=== PATIENT | female | born 1955 | race Caucasian/White ===

== ENCOUNTER → 2017-08-19 | Outpatient (REF) | payer MEDICARE, MEDICAID ==
[2017-05-14 11:57] VITALS: BMI 19.5
[~2017-08-19] MED LIST: ACE3 PO; ACET-2031 PO; ACET-2043 PO; ALE70 PO; AMIO200T47 PO; ARI10 PO; ARIP5TAB PO; BACOUD TP; BEN5 PO; BENZ1 PO; BENZ200C15 PO; BIS10S PR; CALC-515 PO; CALC600T63 PO; CHOL10005 PO; CHOL500025 PO; CIT20 PO; DEN60I SUBQ; DOC100 PO; DULO60CA56 PO; DULO60CA7 PO; EUCT TOP; FERR-53 PO; FLU1 PO; FOLI-94 PO; GUAI118L70 PO; HYDR28.426 TP; IBU200 PO; IMMODIUM PO; IRON15TA PO; LACT-213 PO; LACT-214 PO; LACT10SO82 PO; LEV112 PO; LEV125 PO; LEVO-3 PO; LEVO750T27 PO; LEVO88TA42 PO; LINA290C PO; LOPE-147 PO; LOPE1LIQ49 PO; LOR1 PO; LOR5/325 PO; LOR7.5/325 PO; LORA-1221 PO; LUBI24CA14 PO; METO-566 PO; MINE120C6 TP; MIR PO; MOM PO; MULT-1335 PO; NAPR220T86 PO; NYST100016 PO; OMEG-11 PO; OMEG500C7 PO; OSC600 PO; PANT40TA65 PO; POLY17PO21 FT; POLY17PO25 PO; POTA-23 PO; RIS1 PO; RISP-34 PO; RISP2TAB70 PO; RISP3TAB78 PO; SALSP; SENN8.8S6 PO; SODI30SP6 NS; SULF-198 PO; TER20I SUBQ; [UNRECOGNIZED DRUG - CODE] MC; [UNRECOGNIZED DRUG - CODE] PO; [UNRECOGNIZED DRUG - CODE] PO; [UNRECOGNIZED DRUG - CODE] PO; [UNRECOGNIZED DRUG - CODE] RC; [UNRECOGNIZED DRUG - CODE] TP
[2017-08-19 16:35] LABS: PLATELET COUNT, AUTOMATED 135 K/uL (150-450)
== END ==
PROVIDERS: ATTEND Family Medicine
DX: R05 Cough (principal); R50.9 Fever, unspecified
CPT/HCPCS: 82040; 82247; 82310; 82374; 82435; 82565; 82947; 84075; 84132; 84155; 84295; 84450; 84460; 84520; 85025

== ENCOUNTER 2017-09-24 09:00 | Emergency (ER) | payer MEDICARE, MEDICAID ==
[2017-05-14 11:57] VITALS: Wt 54.4 kg
[~2017-09-24 09:00] MED LIST changes: -ACET325S
[2017-09-24] MEDS ORDERED: NS(*) 0.9% 1000 ML BAG 1,000 ML IV ONE (09:05)
--- NOTE | 2017-09-24 09:12 | ER Report ---
History and Physical Time Seen By MD: 09:08 HPI/ROS CHIEF COMPLAINT: Unresponsiveness HISTORY OF PRESENT ILLNESS: 67 year-old female comes from the [facility] past medical history includes. Cardia unresponsiveness and turning ashen color with drooling frequency unknown per caregiver has been to product safety manager and neurologist ascertain the cause of this problem and no agreement has been found presents with unresponsiveness for 10 minutes associated with pelvic color and heart rate of 55-60 prompting call to EMS as per their protocol. Per EMS she has been awake and talking has had normal color and no complaints. The prehospital EKG was performed and reviewed by me. She is unable to voice any clear complaints at this time. She is responding to at times to some questions. REVIEW OF SYSTEMS: Constitutional: No fever, no chills. Eyes: No discharge. ENT: No sore throat. Cardiovascular: No chest pain, no palpitations. Respiratory: No cough, no shortness of breath. Gastrointestinal: No abdominal pain, no vomiting. Genitourinary: No hematuria. Musculoskeletal: No back pain. Skin: No rashes. Neurological: No headache. Allergies: Coded Allergies: imipenem (Verified Allergy, Intermediate, RASH, 08/19/15) 08/10/15cah: Pt developed a rash on Imipenem, levofloxacin, and vancomycin. Stopped Imipenem and started cefepime midazolam (Verified Allergy, Intermediate, TACHYCARDIA. LOW BP, 08/19/15) clozapine (Verified Allergy, Mild, UNKNOWN REACTION FROM CHART REVIEW, 08/19) Home Meds Active Scripts Pantoprazole Sodium (PANTOPRAZOLE SODIUM) 40 Mg Tablet.dr, 40 MG PO QDAY, #30 Prov:KAVITHA SCHAEFFER MD 05/28/17 Ferrous Sulfate (FERROUS SULFATE) 325 Mg Tablet, 325 MG PO BIDLS, #60 Prov:KAVITHA SCHAEFFER MD 05/28/17 Reported Medications Polyethylene Glycol 3350 (MIRALAX) 17 Gm Powd.pack, 17 GM PO, PKT 09/24/17 Acetaminophen (MAPAP) 325 Mg/10.15 Ml Solution 09/24/17 Levothyroxine Sodium (LEVOTHYROXINE SODIUM) 100 Mcg Tablet, 112 MCG PO QDAY, TAB 09/24/17 Sodium Chloride (SALINE NASAL SPRAY) 30 Ml [place], 2 SPRAYS NS TID, SPRAY 05/14/17 Risperidone (RISPERDAL) 2 Mg Tablet, 2 MG PO QAM 05/14/17 Acetaminophen (ACETAMINOPHEN) 325 Mg Tablet, 325 MG PO BID, TAB 05/14/17 Cholecalciferol (Vitamin D3) (VITAMIN D3) 1,000 Unit Tablet, 5000 UNIT PO 3XW, TAB 05/14/17 Multivitamin With Minerals (MULTIPLE VITAMIN) 1 Each Tablet, 1 EACH PO DAILY, TAB 05/14/17 Lactose-Free Food (ENSURE PLUS) 237 Ml Liquid, 237 ML PO QDAY 05/08/17 Duloxetine HCl (Duloxetine HCl) 60 Mg Capsule.dr, 1 CAP PO QDAY 05/07/17 Fludrocortisone Acetate (Florinef) 0.1 Mg Tab, 0.1 MG PO QDAY M-F, 0 Refills 08/05/10 Discontinued Reported Medications Levothyroxine Sodium (LEVOTHYROXINE SODIUM) 0.125 Mg Tab, 0.125 MG PO QDAY, TAB 05/07/17 Discontinued Scripts Potassium Phosphate Monobasic (K-PHOS ORIGINAL) 500 Mg Tab, 500 MG PO BID, #60 TAB Prov:KAVITHA SCHAEFFER MD 05/28/17 Potassium Chloride (KLOR-CON 10) 10 Meq Tablet.er, 20 MEQ PO BIDBS, #60 Prov:KAVITHA SCHAEFFER MD 05/28/17 Hx Smoking: No Smoking Status: Never Smoker Exposure to Second Hand Smoke?: No Hx Substance Use Disorder: No Hx Alcohol Use: No Constitutional Vital Sign - Last 24 Hours 09/24/17 09/24/17 09/24/17 09/24/17 09:07 09:08 09:30 10:00 Temp 97.5 Pulse 63 63 63 Resp 19 8 B/P (MAP) 101/80 101/80 (87) 81/67 (72) 119/76 (90) Pulse Ox 96 97 O2 Delivery Room Air 09/24/17 09/24/17 09/24/17 09/24/17 10:30 10:35 11:00 11:05 Pulse 74 62 75 Resp 6 7 13 B/P (MAP) 126/103 (111) 129/80 (96) Pulse Ox 94 94 94 09/24/17 09/24/17 09/24/17 11:10 11:30 11:40 Pulse 69 74 Resp 7 10 B/P (MAP) 145/82 (103) Pulse Ox 95 93 Physical Exam General Appearance: The patient is alert, has no immediate need for airway protection and no signs of toxicity. Her mental status is at baseline Eyes: Pupils equal and round no pallor or injection. ENT, Mouth: Mucous membranes are moist. Respiratory: There are no retractions, lungs are clear to auscultation. Cardiovascular: Regular rate and rhythm. [ ] Gastrointestinal: Abdomen is soft and non tender, no masses, bowel sounds normal. Neurological: Moving all 4 extremities Skin: Warm and dry, no rashes. Musculoskeletal: Neck is supple non tender. Extremities are nontender, nonswollen and have full range of motion. No edema DIFFERENTIAL DIAGNOSIS: After history and physical exam differential diagnosis was considered for syncope, presyncope, acute coronary syndrome, pulmonary embolus, sepsis, OH, CVA, ICH this is an incomplete list of diagnoses considered Medical Decision Making Data Points Result Diagram: 09/24/17 0949 09/24/17 0949 Laboratory Hematology Test 09/24/17 09:49 Red Blood Count 4.69 M/uL (4.17-5.56) Mean Corpuscular Volume 89.2 fL (80.0-96.0) Mean Corpuscular Hemoglobin 29.4 pg (26.0-33.0) Mean Corpuscular Hemoglobin Concent 33.0 g/dL (32.0-36.0) Red Cell Distribution Width 14.4 % (11.5-14.5) Mean Platelet Volume 10.7 fL (7.2-11.1) Neutrophils (%) (Auto) 71.4 % (39.4-72.5) Lymphocytes (%) (Auto) 17.4 % (17.6-49.6) Monocytes (%) (Auto) 6.7 % (4.1-12.4) Eosinophils (%) (Auto) 3.7 % (0.4-6.7) Basophils (%) (Auto) 0.8 % (0.3-1.4) Nucleated RBC Relative Count (auto) 0.0 /100WBC Neutrophils # (Auto) 4.6 K/uL (2.0-7.4) Lymphocytes # (Auto) 1.1 K/uL (1.3-3.6) Monocytes # (Auto) 0.4 K/uL (0.3-1.0) Eosinophils # (Auto) 0.2 K/uL (0.0-0.5) Basophils # (Auto) 0.1 K/uL (0.0-0.1) Nucleated RBC Absolute Count (auto) 0.00 K/uL Sodium Level 141 mmol/L (137-145) Potassium Level 4.2 mmol/L (3.5-5.0) Chloride Level 103 mmol/L (98-107) Carbon Dioxide Level 29 mmol/L (22-31) Blood Urea Nitrogen 18 mg/dl (7-18) Creatinine 1.00 mg/dl (0.52-1.04) Glomerular Filtration Rate Calc 56.0 Random Glucose 103 mg/dl (75-110) Calcium Level 9.1 mg/dl (8.4-10.2) Total Bilirubin 0.3 mg/dl (0.2-1.3) Aspartate Amino Transf (AST/SGOT) 38 U/L (0-35) Alanine Aminotransferase (ALT/SGPT) 25 U/L (0-56) Alkaline Phosphatase 48 U/L (0-126) Troponin I < 0.012 ng/ml B-Type Natriuretic Peptide 58 pg/ml (0-100) Total Protein 6.6 gm/dl (6.3-8.2) Albumin 3.7 g/dl (3.5-5.0) Chemistry Test 09/24/17 09:49 White Blood Count 6.4 k/uL (4.5-11.0) Red Blood Count 4.69 M/uL (4.17-5.56) Hemoglobin 13.8 g/dL (12.0-16.0) Hematocrit 41.8 % (34.0-47.0) Mean Corpuscular Volume 89.2 fL (80.0-96.0) Mean Corpuscular Hemoglobin 29.4 pg (26.0-33.0) Mean Corpuscular Hemoglobin Concent 33.0 g/dL (32.0-36.0) Red Cell Distribution Width 14.4 % (11.5-14.5) Platelet Count 142 K/uL (150-450) Mean Platelet Volume 10.7 fL (7.2-11.1) Neutrophils (%) (Auto) 71.4 % (39.4-72.5) Lymphocytes (%) (Auto) 17.4 % (17.6-49.6) Monocytes (%) (Auto) 6.7 % (4.1-12.4) Eosinophils (%) (Auto) 3.7 % (0.4-6.7) Basophils (%) (Auto) 0.8 % (0.3-1.4) Nucleated RBC Relative Count (auto) 0.0 /100WBC Neutrophils # (Auto) 4.6 K/uL (2.0-7.4) Lymphocytes # (Auto) 1.1 K/uL (1.3-3.6) Monocytes # (Auto) 0.4 K/uL (0.3-1.0) Eosinophils # (Auto) 0.2 K/uL (0.0-0.5) Basophils # (Auto) 0.1 K/uL (0.0-0.1) Nucleated RBC Absolute Count (auto) 0.00 K/uL Glomerular Filtration Rate Calc 56.0 Calcium Level 9.1 mg/dl (8.4-10.2) Total Bilirubin 0.3 mg/dl (0.2-1.3) Aspartate Amino Transf (AST/SGOT) 38 U/L (0-35) Alanine Aminotransferase (ALT/SGPT) 25 U/L (0-56) Alkaline Phosphatase 48 U/L (0-126) Troponin I < 0.012 ng/ml B-Type Natriuretic Peptide 58 pg/ml (0-100) Total Protein 6.6 gm/dl (6.3-8.2) Albumin 3.7 g/dl (3.5-5.0) EKG/Imaging EKG Interpretation Pre-hospital EKG shows sinus bradycardia with a rate of [address] or T-wave changes limited mildly by artifact EKG 9:15 AM 09/24/2017 my read: Significant artifact is present clear P waves are difficult to discern I think artifact is producing atrial fibrillation on the computer read. No ST or T-wave changes are appreciable. Overall nonspecific EKG. ED Course/Re-evaluation ED Course The patient was awake, talking smiling and at baseline mental status upon arrival. No signs of deterioration occur during the emergency department visit. Decision to Disposition Date: Sep 24, 2017 Decision to Disposition Time: 12:40 Depart Departure Latest Vital Signs Vital Signs Date Time Temp Pulse Resp B/P (MAP) Pulse Ox O2 Delivery O2 Flow Rate FiO2 09/24/17 11:40 74 10 93 09/24/17 11:30 145/82 (103) 09/24/17 09:07 97.5 Room Air Impression: Primary Impression: Syncope Condition: Improved Disposition: ASSISTED LIVING FACILITY Referrals: SAQIB LOTT (PCP) Patient Instructions: Syncope (DC) Problem Qualifiers Primary Impression: Syncope Encounter type: initial encounter GEOFFREY QUEZADA MD Sep 24, 2017 09:11
--- NOTE | 2017-09-24 09:25 | RADIOLOGY IMAGING REPORT ---
FACILITY: [facility] [place] PATIENT NAME: Gretta Mondragon : 1955 MR: [id number] V: [id number] EXAM DATE: ORDERING PHYSICIAN: GEOFFREY QUEZADA TECHNOLOGIST: [place] [facility] [place]retta Mondr[place] : 1955 Visit/Account:[id number] Date of Sevice: 09/24/2017 EXAMINATION: Chest radiograph HISTORY: Wheezing, dyspnea COMPARISON: None. FINDINGS: The cardiac silhouette is normal in size. A thin line projects over the left lateral lower lung whic h may represent a skin fold or structure external to the patient. A pneumothorax is felt less likely . Clear lungs. No acute osseous abnormality. IMPRESSION: No definitive acute finding. Thin line projects over the left lateral lower lung which may represent a skin fold or a structure ex ternal to the patient. A pneumothorax is felt less likely. A repeat radiograph could be utilized as needed to document the reproducibility of this finding. Report Dictated By: Cooper Vaughan MD at 09/24/2017 9:19 AM Report E-Signed By: Cooper Vaughan MD at 09/24/2017 9:22 AM WSN:[id number]
--- NOTE | 2017-09-24 09:31 | EKG ---
FACILITY: [facility] PATIENT NAME: BROCK SELF : [id number] MR: [id number] V: [id number] EXAM DATE: ORDERING PHYSICIAN: GEOFFREY QUEZADA TECHNOLOGIST: ANGELO Curry Reason : BRADYCARDIA Blood Pressure : / mmHG Vent. Rate : 061 BPM Atrial Rate : 234 BPM P-R Int : 000 ms QRS Dur : 068 ms QT Int : 424 ms P-R-T Axes : 000 067 061 degrees QTc Int : 426 ms Artifact in all leads - recommend repeat EKG Difficult to determine rhythm Abnormal ECG Confirmed by EDUAR RIVAS ([id number]) on 09/24/2017 3:44:50 PM Referred By: PILAR Confirmed By:EDUAR RIVAS
[2017-09-24] MEDS ORDERED: ACET325S (09:58)
[2017-09-24] MEDS ORDERED: LEVO-3 PO (09:58)
[2017-09-24] MEDS ORDERED: POLY17PO25 PO (09:58)
[2017-09-24 10:01] LABS: PLATELET COUNT, AUTOMATED 142 K/uL (150-450)
--- NOTE | 2017-09-24 11:55 | RADIOLOGY IMAGING REPORT ---
FACILITY: [facility] PATIENT NAME: Gretta Mondragon : 1955 MR: [id number] V: [id number] EXAM DATE: ORDERING PHYSICIAN: GEOFFREY QUEZADA [place]CHN[place]: [place] [facility] [place]retta Mondr[place] : 1955 Visit/Account:[id number] Date of Sevice: 09/24/[address] scan without contrast HISTORY: Altered mental status COMPARISONS: August 20, 2016 TECHNIQUE: Non-contrast head CT was performed with sagittal and coronal reformations. One of the following dose optimization techniques was utilized in the performance of this exam: autom ated exposure control; adjustment of the mA and/or kV according to patient size; or use of iterative reconstruction technique. Specific details can be referenced in the facility's radiology CT exam ope rational policy. FINDINGS: There is no intracranial hemorrhage, hydrocephalus or midline shift. The basal cisterns, olson-white differentiation, and convexity sulci are maintained. Normal orbital soft tissues. Mild unchanged at rophy. Clear mastoid air cells. Medial right upper maxillary sinus mucosal thickening. No acute osseous ab normality. IMPRESSION: No acute intracranial abnormality. Report Dictated By: Cooper Vaughan MD at 09/24/2017 11:47 AM Report E-Signed By: Cooper Vaughan MD at 09/24/2017 11:50 AM WSN:[id number]
[2017-09-24 12:30] VITALS: BP 142/82
== END 2017-09-24 12:58 | disposition home or self-care (01) ==
LOC: ER 09:25
DX: R55 Syncope and collapse (principal); R00.1 Bradycardia, unspecified; R06.00 Dyspnea, unspecified
CPT/HCPCS: 70450; 71045; 83880; 84484; 85025; 96360; 99284; J7030; 82040; 82247; 82310; 82374; 82435; 82565; 82947; 84075; 84132; 84155; 84295; 84450; 84460; 84520

== ENCOUNTER → 2017-09-24 | Outpatient (CLI) | payer MEDICARE, MEDICAID ==
[2017-05-14 11:57] VITALS: BMI 19.5
[~2017-09-24] MED LIST changes: +ACET325S
== END ==
LOC: AMB 08:40
PROVIDERS: ATTEND Nurse Practitioner
DX: R55 Syncope and collapse (principal)
CPT/HCPCS: A0425; A0427

== ENCOUNTER → 2017-10-25 | Outpatient (CLI) | payer MEDICARE, MEDICAID ==
[2017-05-14 11:57] VITALS: BMI 19.5
[~2017-10-25] MED LIST changes: +ACET325S; +BENZ0.5T19 PO
== END ==
LOC: RESP 19:26
PROVIDERS: ATTEND Nurse Practitioner Family
DX: G47.30 Sleep apnea, unspecified (principal); G47.61 Periodic limb movement disorder; G47.36 Sleep related hypoventilation in conditions classified elsewhere; G11.1 Early-onset cerebellar ataxia; R53.83 Other fatigue; F79 Unspecified intellectual disabilities; M62.81 Muscle weakness (generalized); R09.02 Hypoxemia

== ENCOUNTER → 2017-10-31 | Outpatient (CLI) | payer MEDICARE, MEDICAID ==
[2017-05-14 11:57] VITALS: BMI 19.5
[~2017-10-31] MED LIST changes: +DENOSUMAB 60 MG/1 ML SYR SUBQ ONE
[2017-10-31 10:15] VITALS: BP 92/69
== END ==
LOC: SPU 10-25 07:36
PROVIDERS: ATTEND Nurse Practitioner Family
DX: M81.0 Age-related osteoporosis without current pathological fracture (principal)
CPT/HCPCS: 96372; J0897

== ENCOUNTER → 2017-11-24 | Outpatient (REF) | payer MEDICARE, MEDICAID ==
[2017-05-14 11:57] VITALS: BMI 19.5
[~2017-11-24] MED LIST changes: -ACET325S; +ACET325S PO; +CALC1TAB24 PO; -DENOSUMAB 60 MG/1 ML SYR SUBQ ONE; +DOCU-416 PO; +FOLI-68 PO; +GUAI-244 PO; +LEVO88TA45 PO; +NAPR220C12 PO
[2017-11-24 18:40] LABS: PLATELET COUNT, AUTOMATED 116 K/uL (150-450)
== END ==
PROVIDERS: ATTEND Family Medicine
DX: R05 Cough (principal)
CPT/HCPCS: 82040; 82247; 82310; 82374; 82435; 82565; 82947; 84075; 84132; 84155; 84295; 84450; 84460; 84520; 85025

== ENCOUNTER → 2017-11-30 | Outpatient (CLI) | payer MEDICARE, MEDICAID ==
[2017-05-14 11:57] VITALS: BMI 19.5
--- NOTE | 2017-11-30 13:18 | RADIOLOGY IMAGING REPORT ---
FACILITY: [facility] PATIENT NAME: Gretta Mondragon : 1955 MR: [id number] V: [id number] EXAM DATE: ORDERING PHYSICIAN: SAQIB LOTT TECHNOLOGIST: Location: [facility] Patient: Gretta Mondragon : 1955 Visit/Account:[id number] Date of Sevice: 11/30/2017 DEXA Scan Clinical history: Hypothyroidism, gastric bypass. Comparison: DEXA scan from 01/07/2016. LUMBAR SPINE: The bone mineral density (BMD) measured from L1-L4 correlates with a Z-score of 2.2 and a T-score of 0.4 which is Normal as defined by the World Health Organization. The corresponding risk of fracture in the lumbar spine is Not increased compared with a young adult reference population. This value samuel s increased by 9.1 % since the prior study. More than 5% change is considered significant. HIP: Bone mineral density (BMD) measured in the LEFT total hip region correlates with a Z-score -1.4 and a T-score of -2.7 which is osteoporosis as defined by the World Health Organization. The correspondin g risk of fracture in the hip is 68 times increased compared to a young adult reference population. T his value has decrease by 0.1 % since the prior study. More than 5% change is considered significant . Score left femoral neck -2.4 Bone mineral density (BMD) measured in the Femoral Neck region measures 0.702 g/cm?. IMPRESSION: 1. Lumbar spine: Normal. There has been 9.1% increase in the bone mineral density since the previou s exam. 2. Left Total Hip: Osteoporosis. There has been 0.1% decrease in the bone mineral density since the previous exam. 3. Femoral Neck: Bone Mineral Density is 0.702 g/cm? The next DEXA scan of this patient should include the following sites: L1-L4 and the left hip. FRAX? WHO Fracture Risk Assessment Tool link: <http://www.shef.ac.uk/FRAX/tool.jsp?locationValue=9> PLEASE NOTE: 1) The World Health Organization defines low BMD as follows: T-score Normal > -1 Osteopenia < -1 and > -2.5 Osteoporosis < -2.5 without fractures Established osteoporosis < -2.5 with fractures 2) In general, you may wish to consider: Diagnosis Treatment Follow-up DEXA Normal BMD Prevention 2-3 years Osteopenia Prevention/therapy 1-2 years Osteoporosis Therapy Yearly 3) Fracture risk estimated from the T-score is more accurate for vertebral fractures (often spontane ous) than for hip fractures. Report Dictated By: Lizzeth Henson MD at 11/30/2017 1:12 PM Report E-Signed By: Lizzeth Henson MD at 11/30/2017 1:13 PM WSN:[email or web address]
--- NOTE | 2017-11-30 15:47 | RADIOLOGY IMAGING REPORT ---
FACILITY: [facility] PATIENT NAME: BROCK SELF : [id number] MR: [id number] V: [id number] EXAM DATE: [id number] ORDERING PHYSICIAN: SAQIB LOTT TECHNOLOGIST: Ayse Ireland PROCEDURE:BILATERAL DIGITAL SCREENING MAMMOGRAM WITH CAD ASSISTED INTERPRETATION COMPARISON:Prior mammograms 11/28/16, 11/25/15, 11/23/14, 11/18/13, 11/07/12, 11/06/11. INDICATIONS:screening FINDINGS: Dense heterogeneous fibroglandular tissue is seen throughout the breasts. The parenchymal pattern has remained stable allowing for difference in mammographic technique & patient positioning. There is no evidence of malignant appearing mass, malignant appearing calcifications or other secondary sign of malignancy in either breast. DIAGNOSTIC CATEGORY 1--NEGATIVE. RECOMMENDATIONS: ROUTINE MAMMOGRAM AND CLINICAL EVALUATION. IMPRESSION: BIRADS 1: Negative No significant abnormality is seen. Dictated by: Lizzeth Henson M.D. on 11/30/2017 at 13:01 Transcribed by: MIKE on 11/30/2017 at 13:09 Approved by: Lizzeth Henson M.D. on 11/30/2017 at 15:46 [facility]
== END ==
LOC: MAMO 03:17
PROVIDERS: ATTEND Nurse Practitioner Family
DX: Z13.820 Encounter for screening for osteoporosis (principal); Z12.31 Encounter for screening mammogram for malignant neoplasm of breast; M81.0 Age-related osteoporosis without current pathological fracture
CPT/HCPCS: 77063; 77067; 77080

== ENCOUNTER → 2018-04-03 | Outpatient (CLI) | payer MEDICARE, MEDICAID ==
[2017-05-14 11:57] VITALS: BMI 19.5
[~2018-04-03] MED LIST changes: -AMIO200T47 PO; +AMIO200T49 PO
[2018-04-03 15:12] LABS: PLATELET COUNT, AUTOMATED 211 K/uL (150-450)
--- NOTE | 2018-04-03 15:22 | RADIOLOGY IMAGING REPORT ---
FACILITY: [facility] PATIENT NAME: Gretta Mondragon : 1955 MR: [id number] V: [id number] EXAM DATE: ORDERING PHYSICIAN: SAQIB LOTT TECHNOLOGIST: Location: [facility] Patient: Gretta Mondragon : 1955 Visit/Account:[id number] Date of Sevice: 04/03/2018 Examination: MR brain without contrast History: Weight loss Comparison: Head CT September 24, 2017 Technique: Multiplane MR imaging was performed through the brain without contrast. Findings: Diffusion: None Ventricles: Unchanged ex vacuo ventricular dilatation. Midline shift: None Extraaxial fluid: None. Midline craniocervical structures: Normal Parenchyma: Mild unchanged atrophy. A few punctate white matter high signal foci, within normal limi ts for age. Vascular flow voids: Normal Orbits and paranasal sinuses: Small right maxillary sinus mucous retention cyst. Impression: 1. No acute intracranial abnormality. 2. Mild unchanged diffuse parenchymal atrophy. 3. Otherwise normal for age brain MR. Report Dictated By: Cooper Vaughan MD at 04/03/2018 3:14 PM Report E-Signed By: Cooper Vaughan MD at 04/03/2018 3:18 PM WSN:[id number]
[2018-04-03 15:24] LABS: LDL CHOLESTEROL 73 mg/dl
== END ==
LOC: MRI 13:40
PROVIDERS: ATTEND Nurse Practitioner Family
DX: R63.8 Other symptoms and signs concerning food and fluid intake (principal); R63.4 Abnormal weight loss; G47.411 Narcolepsy with cataplexy; G11.1 Early-onset cerebellar ataxia; R25.9 Unspecified abnormal involuntary movements; K59.09 Other constipation; E06.3 Autoimmune thyroiditis; N39.498 Other specified urinary incontinence; D51.0 Vitamin B12 deficiency anemia due to intrinsic factor deficiency; E55.9 Vitamin D deficiency, unspecified; E78.00 Pure hypercholesterolemia, unspecified
CPT/HCPCS: 36415; 70551; 82040; 82247; 82306; 82310; 82374; 82435; 82465; 82565; 82607; 82947; 83718; 84075; 84132; 84155; 84295; 84443; 84450; 84460; 84478; 84520; 85025

== ENCOUNTER → 2018-05-03 | Outpatient (CLI) | payer MEDICARE, MEDICAID ==
[2017-05-14 11:57] VITALS: BMI 19.5
[~2018-05-03] MED LIST changes: +DENOSUMAB 60 MG/1 ML SYR SUBQ ONE
== END ==
LOC: SPU 07:00
PROVIDERS: ATTEND Nurse Practitioner Family
DX: M81.0 Age-related osteoporosis without current pathological fracture (principal)
CPT/HCPCS: 96372; J0897

== ENCOUNTER → 2018-06-13 | Outpatient (CLI) | payer MEDICARE, MEDICAID ==
[2017-05-14 11:57] VITALS: BMI 19.5
[~2018-06-13] MED LIST changes: -DENOSUMAB 60 MG/1 ML SYR SUBQ ONE; +POLY17PO11 FT; -POLY17PO21 FT
--- NOTE | 2018-06-13 11:25 | RADIOLOGY IMAGING REPORT ---
FACILITY: [facility] PATIENT NAME: Gretta Mondragon : 1955 MR: [id number] V: [id number] EXAM DATE: ORDERING PHYSICIAN: DENA CATHERINE TECHNOLOGIST: Location: [facility] [place] Patient: Gretta Mondragon : 1955 Visit/Account:[id number] Date of Sevice: 06/13/2018 KIDNEYS EXAMINATION: Renal ultrasound. History: Left flank pain x1 week COMPARISON STUDIES: CT abdomen and pelvis May 07, 2017 FINDINGS: Kidneys: Right kidney- 9.4 x 3.5 x 4.9 cm Left kidney- 9.9 x 5.8 x 4.8 cm Uniform and symmetric blood flow in each kidney by Doppler ultrasound. Hydronephrosis: none There are multiple tiny echogenic foci within both kidneys which may represent nonobstructing calculi Bladder: Urinary bladder prevoid volume 124 mL. Post void bladder residual 33 mL. Bilateral uretera l jets are present. Bladder wall appears thickened Abdominal aorta and IVC: Aorta and IVC are patent by Doppler ultrasound. IMPRESSION: Multiple tiny echogenic foci are seen in both kidneys which may represent nonobstructing calculi Bladder wall thickening Bilateral ureteral jets were not seen Report Dictated By: Lizzeth Henson MD at 06/13/2018 11:18 AM Report E-Signed By: Lizzeth Henson MD at 06/13/2018 11:21 AM WSN:[email or web address]
== END ==
LOC: US 00:29
PROVIDERS: ATTEND Nurse Practitioner Family
DX: N20.0 Calculus of kidney (principal)
CPT/HCPCS: 76705

== ENCOUNTER 2018-07-23 10:07 | Emergency (ER) | payer MEDICARE, MEDICAID ==
[2017-05-14 11:57] VITALS: Wt 54.5 kg
[2018-07-23 10:38] LABS: PLATELET COUNT, AUTOMATED 177 K/uL (150-450)
--- NOTE | 2018-07-23 10:45 | ER Report ---
History and Physical Time Seen By MD: 10:30 Hx. of Stated Complaint: PER STAFF, PT HAS HAD ABD SWELLING, REDNESS AND PAIN X1 DAY. HX OF SBO. HPI/ROS CHIEF COMPLAINT: Abdominal pain and distention HISTORY OF PRESENT ILLNESS: Patient is longterm facility resident who is brought in by her caregiver. She was noted to have abdominal swelling, redness this morning that appeared similar to prior abdominal obstruction. She has had history of obstruction that has required surgical reduction including a colostomy and reversal. Last hospitalization for obstruction was 2016. Patient has also had a hysterectomy and no other reported abdominal surgeries. She has not vomited, has had normal bowel movements and no change in urine. She has no reported fever. Patient is able to answer simple questions. She now states she does not have abdominal pain. Her only compliant is that she is cold. Caregiver reports that she is always cold. REVIEW OF SYSTEMS: Constitutional: constantly cold. No other c/o Eyes: no change ENT: no reported pain Cardiovascular: no pain Respiratory: no cough Gastrointestinal: above Genitourinary: no change in urination Musculoskeletal: pt does not complain of pain Skin: no new rashes reported Neurological: no change in mental status or activity per caregiver Remainder of the 14 system rev: No (ROS limited due to pt's cognitive limitation) Allergies: Coded Allergies: imipenem (Verified Allergy, Intermediate, RASH, 07/23/18) 08/10/15cah: Pt developed a rash on Imipenem, levofloxacin, and vancomycin. Stopped Imipenem and started cefepime midazolam (Verified Allergy, Intermediate, TACHYCARDIA. LOW BP, 07/23/18) clozapine (Verified Allergy, Mild, UNKNOWN REACTION FROM CHART REVIEW, 07/23/18) Home Meds Active Scripts Pantoprazole Sodium (PANTOPRAZOLE SODIUM) 40 Mg Tablet.dr, 40 MG PO QDAY, #30 Prov:KAVITHA SCHAEFFER MD 05/28/17 Ferrous Sulfate (FERROUS SULFATE) 325 Mg Tablet, 325 MG PO BIDLS, #60 Prov:KAVITHA SCHAEFFER MD 05/28/17 Reported Medications Folic Acid (FOLIC ACID) 1 Mg Tablet, 1 MG PO QDAY, TAB 11/14/17 Lorazepam (LORAZEPAM) 1 Mg Tab, 1 MG PO PRN, TAB 11/14/17 Guaifenesin (ROBAFEN) 100 Mg/5 Ml Liquid, 100 MG PO PRN 11/14/17 Naproxen Sodium (ALEVE) 220 Mg Capsule, 220 MG PO TID PRN for prn, CAPSULE 11/14/17 Magnesium Hydroxide (MILK OF MAGNESIA) 400 Mg/5 Ml Oral.susp, 400 MG PO PRN, BOTTLE 11/14/17 Levothyroxine Sodium (LEVOTHYROXINE SODIUM) 88 Mcg Tablet, 88 MCG PO QDAY 11/14/17 Calcium Carbonate/Mag Hydrox (ANTACID CHEWABLE TABLET) 1 Each Tab.chew, 1 EACH PO PRN, TAB.CHEW 11/13/17 Docusate Sodium (COLACE) 100 Mg Capsule, 100 MG PO BID, CAPSULE 11/13/17 Denosumab (PROLIA) 60 Mg/1 Ml Injs, 60 MG SUBQ [id number] 11/13/17 Polyethylene Glycol 3350 (MIRALAX) 17 Gm Powd.pack, 17 GM PO QDAY, PKT 09/24/17 Acetaminophen (MAPAP) 325 Mg/10.15 Ml Solution, 325 MG PO BID 09/24/17 Sodium Chloride (SALINE NASAL SPRAY) 30 Ml [place], 2 SPRAYS NS TID, SPRAY 05/14/17 Cholecalciferol (Vitamin D3) (VITAMIN D3) 1,000 Unit Tablet, 5000 UNIT PO QDAY, TAB 05/14/17 Multivitamin With Minerals (MULTIPLE VITAMIN) 1 Each Tablet, 1 EACH PO DAILY, TAB 05/14/17 Lactose-Free Food (ENSURE PLUS) 237 Ml Liquid, 237 ML PO QDAY 05/08/17 Duloxetine HCl (Duloxetine HCl) 60 Mg Capsule.dr, 1 CAP PO QDAY 05/07/17 Fludrocortisone Acetate (Florinef) 0.1 Mg Tab, 0.1 MG PO QDAY M-F, 0 Refills 08/05/10 Discontinued Reported Medications Risperidone (RISPERDAL) 2 Mg Tablet, 2 MG PO QAM 05/14/17 Reviewed Nurses Notes: Yes Old Medical Records Reviewed: Yes Hx Smoking: No Smoking Status: Never Smoker Exposure to Second Hand Smoke?: No Hx Substance Use Disorder: No Hx Alcohol Use: No Constitutional Vital Sign - Last 24 Hours 07/23/18 07/23/18 07/23/18 07/23/18 10:07 10:18 10:19 10:22 Temp 97.8 Pulse ??? 84 80 Resp 16 B/P (MAP) 135/72 (93) 135/72 Pulse Ox 97 95 O2 Delivery Room Air 07/23/18 07/23/18 07/23/18 07/23/18 10:33 10:37 10:52 11:00 Pulse 76 77 B/P (MAP) 131/82 (98) 132/70 (90) Pulse Ox 98 95 07/23/18 07/23/18 07/23/18 07/23/18 11:07 11:12 11:30 11:42 Pulse 67 74 80 B/P (MAP) 151/97 (115) Pulse Ox 95 99 Physical Exam General Appearance: The patient is alert, has no immediate need for airway protection and no signs of toxicity. Eyes: Pupils equal and round no pallor or injection. ENT, Mouth: Mucous membranes are moist. Respiratory: There are no retractions, lungs are clear to auscultation. Cardiovascular: Regular rate and rhythm. Gastrointestinal: abdomen is distended yet soft, appears mildly ttp on r > left. No erythema or masses. Bowel sounds normal throughout Neurological: patient answers simple questions, follows simple directions, moves all ext Skin: Warm and dry, no rashes. Musculoskeletal: Extremities are nontender, nonswollen. DIFFERENTIAL DIAGNOSIS: After history and physical exam differential diagnosis was considered for abdominal pain including but not limited to appendicitis, cholecystitis, gastritis, obstruction, aaa, and urinary tract infection. Medical Decision Making Data Points Result Diagram: 07/23/18 1024 07/23/18 1024 Laboratory Hematology Test 07/23/18 10:24 07/23/18 10:34 Red Blood Count 4.62 M/uL (4.17-5.56) Mean Corpuscular Volume 95.6 fL (80.0-96.0) Mean Corpuscular Hemoglobin 31.2 pg (26.0-33.0) Mean Corpuscular Hemoglobin Concent 32.7 g/dL (32.0-36.0) Red Cell Distribution Width 14.3 % (11.5-14.5) Mean Platelet Volume 10.0 fL (7.2-11.1) Neutrophils (%) (Auto) 48.4 % (39.4-72.5) Lymphocytes (%) (Auto) 36.4 % (17.6-49.6) Monocytes (%) (Auto) 8.8 % (4.1-12.4) Eosinophils (%) (Auto) 4.3 % (0.4-6.7) Basophils (%) (Auto) 2.1 % (0.3-1.4) Nucleated RBC Relative Count (auto) 0.0 /100WBC Neutrophils # (Auto) 2.6 K/uL (2.0-7.4) Lymphocytes # (Auto) 2.0 K/uL (1.3-3.6) Monocytes # (Auto) 0.5 K/uL (0.3-1.0) Eosinophils # (Auto) 0.2 K/uL (0.0-0.5) Basophils # (Auto) 0.1 K/uL (0.0-0.1) Nucleated RBC Absolute Count (auto) 0.00 K/uL Sodium Level 141 mmol/L (137-145) Potassium Level 3.8 mmol/L (3.5-5.0) Chloride Level 106 mmol/L (98-107) Carbon Dioxide Level 26 mmol/L (22-31) Blood Urea Nitrogen 27 mg/dl (7-18) Creatinine 0.90 mg/dl (0.52-1.04) Glomerular Filtration Rate Calc > 60.0 Random Glucose 84 mg/dl (75-110) Lactate 0.8 mmol/L (0.7-2.1) Calcium Level 8.8 mg/dl (8.4-10.2) Total Bilirubin 0.4 mg/dl (0.2-1.3) Aspartate Amino Transf (AST/SGOT) 47 U/L (0-35) Alanine Aminotransferase (ALT/SGPT) 20 U/L (0-56) Alkaline Phosphatase 51 U/L (0-126) Total Protein 6.9 g/dl (6.3-8.2) Albumin 3.9 g/dl (3.5-5.0) Lipase 103 U/L (23-300) Urine Color Yellow Urine Clarity Clear Urine pH 6.0 pH (4.8-9.5) Urine Specific [place] 1.021 Urine Protein Negative mg/dL (NEGATIVE) Urine Glucose (UA) Negative mg/dL (NEGATIVE) Urine Ketones Negative mg/dL (NEGATIVE) Urine Blood Negative (NEGATIVE) Urine Nitrite Negative (NEGATIVE) Urine Bilirubin Negative (NEGATIVE) Urine Urobilinogen Negative mg/dL (0.2-1.9) Urine Leukocyte Esterase Negative (NEGATIVE) Urine RBC None /HPF (0-2/HPF) Urine WBC 1 /HPF (0-5/HPF) Urine Squamous Epithelial Cells Many /LPF (NONE-FEW) Urine Transitional Epithelial Cells Few /LPF (NONE-FEW) Urine Amorphous Crystals Few /HPF Urine Bacteria Negative /HPF (NONE-FEW) Urine Mucus Few /HPF (NONE-FEW) Chemistry Test 07/23/18 10:24 07/23/18 10:34 White Blood Count 5.4 k/uL (4.5-11.0) Red Blood Count 4.62 M/uL (4.17-5.56) Hemoglobin 14.4 g/dL (12.0-16.0) Hematocrit 44.2 % (34.0-47.0) Mean Corpuscular Volume 95.6 fL (80.0-96.0) Mean Corpuscular Hemoglobin 31.2 pg (26.0-33.0) Mean Corpuscular Hemoglobin Concent 32.7 g/dL (32.0-36.0) Red Cell Distribution Width 14.3 % (11.5-14.5) Platelet Count 177 K/uL (150-450) Mean Platelet Volume 10.0 fL (7.2-11.1) Neutrophils (%) (Auto) 48.4 % (39.4-72.5) Lymphocytes (%) (Auto) 36.4 % (17.6-49.6) Monocytes (%) (Auto) 8.8 % (4.1-12.4) Eosinophils (%) (Auto) 4.3 % (0.4-6.7) Basophils (%) (Auto) 2.1 % (0.3-1.4) Nucleated RBC Relative Count (auto) 0.0 /100WBC Neutrophils # (Auto) 2.6 K/uL (2.0-7.4) Lymphocytes # (Auto) 2.0 K/uL (1.3-3.6) Monocytes # (Auto) 0.5 K/uL (0.3-1.0) Eosinophils # (Auto) 0.2 K/uL (0.0-0.5) Basophils # (Auto) 0.1 K/uL (0.0-0.1) Nucleated RBC Absolute Count (auto) 0.00 K/uL Glomerular Filtration Rate Calc > 60.0 Lactate 0.8 mmol/L (0.7-2.1) Calcium Level 8.8 mg/dl (8.4-10.2) Total Bilirubin 0.4 mg/dl (0.2-1.3) Aspartate Amino Transf (AST/SGOT) 47 U/L (0-35) Alanine Aminotransferase (ALT/SGPT) 20 U/L (0-56) Alkaline Phosphatase 51 U/L (0-126) Total Protein 6.9 g/dl (6.3-8.2) Albumin 3.9 g/dl (3.5-5.0) Lipase 103 U/L (23-300) Urine Color Yellow Urine Clarity Clear Urine pH 6.0 pH (4.8-9.5) Urine Specific [place] 1.021 Urine Protein Negative mg/dL (NEGATIVE) Urine Glucose (UA) Negative mg/dL (NEGATIVE) Urine Ketones Negative mg/dL (NEGATIVE) Urine Blood Negative (NEGATIVE) Urine Nitrite Negative (NEGATIVE) Urine Bilirubin Negative (NEGATIVE) Urine Urobilinogen Negative mg/dL (0.2-1.9) Urine Leukocyte Esterase Negative (NEGATIVE) Urine RBC None /HPF (0-2/HPF) Urine WBC 1 /HPF (0-5/HPF) Urine Squamous Epithelial Cells Many /LPF (NONE-FEW) Urine Transitional Epithelial Cells Few /LPF (NONE-FEW) Urine Amorphous Crystals Few /HPF Urine Bacteria Negative /HPF (NONE-FEW) Urine Mucus Few /HPF (NONE-FEW) Urinalysis Test 07/23/18 10:34 Urine Color Yellow Urine Clarity Clear Urine pH 6.0 pH (4.8-9.5) Urine Specific [place] 1.021 Urine Protein Negative mg/dL (NEGATIVE) Urine Glucose (UA) Negative mg/dL (NEGATIVE) Urine Ketones Negative mg/dL (NEGATIVE) Urine Blood Negative (NEGATIVE) Urine Nitrite Negative (NEGATIVE) Urine Bilirubin Negative (NEGATIVE) Urine Urobilinogen Negative mg/dL (0.2-1.9) Urine Leukocyte Esterase Negative (NEGATIVE) Urine RBC None /HPF (0-2/HPF) Urine WBC 1 /HPF (0-5/HPF) Urine Squamous Epithelial Cells Many /LPF (NONE-FEW) Urine Transitional Epithelial Cells Few /LPF (NONE-FEW) Urine Amorphous Crystals Few /HPF Urine Bacteria Negative /HPF (NONE-FEW) Urine Mucus Few /HPF (NONE-FEW) ED Course/Re-evaluation ED Course 63-year-old female from SNF presents with caregiver with abdominal pain and distention. Given history of obstruction, evaluation performed to rule out repeat obstruction. Labs unremarkable, CT shows large stool Berdan, without evidence of obstruction. Of note, possible early ileus. As patient feels well, repeat exam without tenderness but with the continued distention consistent with the CT, and no vomiting, it is reasonable for return for clear liquid diet, laxative, and close monitoring. hourly caregiver is very comfortable with this plan and understands the potential for return for obstruction. Decision to Disposition Date: Jul 23, 2018 Decision to Disposition Time: 12:17 Depart Departure Latest Vital Signs Vital Signs Date Time Temp Pulse Resp B/P (MAP) Pulse Ox O2 Delivery O2 Flow Rate FiO2 07/23/18 11:42 80 99 07/23/18 11:30 151/97 (115) 07/23/18 10:19 97.8 16 Room Air Impression: Primary Impression: Abdominal distention Condition: Improved Disposition: ASSISTED LIVING FACILITY Referrals: SAQIB LOTT (PCP) Patient Instructions: Abdominal Pain (ED), Constipation (ED) Additional Instructions: As we discussed, I recommend liquid diet with soup, Jell-O, fluid as tolerated, until Gretta has regular bowel movements. I also recommend administering the milk of magnesia as she has prescribed. There is a chance that she will become obstructed, so please return for vomiting, worsening symptoms, or any concerns. ADY CARRASCO MD Jul 23, 2018 10:45
[2018-07-23] MEDS ORDERED: IOPAMIDOL 76% 75 ML INFUS BTL 75 ML ONE (11:15)
[2018-07-23 12:00] VITALS: BP 126/75
--- NOTE | 2018-07-23 12:08 | RADIOLOGY IMAGING REPORT ---
FACILITY: [facility] - [place] PATIENT NAME: Gretta Mondragon : 1955 MR: [id number] V: [id number] EXAM DATE: ORDERING PHYSICIAN: ADY CARRASCO TECHNOLOGIST: Location: [facility] - [place] Patient: Gretta Mondragon : 1955 Visit/Account:[id number] Date of Sevice: 07/23/2018 CT ABDOMEN PELVIS W/ CON HISTORY: Abdomen pain, history of obstruction TECHNIQUE: Following administration of IV contrast contiguous axial images acquired through the abdom en/pelvis. Coronal and sagittal reformatting also performed.Dose Lowering Technique One of the following dose optimization techniques was utilized in the performance of this exam: Autom ated exposure control; adjustment of the mA and/or kV according to the patient's size; or use of an i terative reconstruction technique. Specific details can be referenced in the facility's radiology C T exam operational policy. CONTRAST: 75 mL Isovue-370 COMPARISON: May 07, 2017 FINDINGS: Visualized lung bases: There is motion artifact present although no gross abnormality seen Hepatobiliary: Hypoattenuating lesions in the liver likely representing cysts appear relatively stab le Spleen: Negative. Adrenals: Negative. Pancreas: Negative. Kidneys ureters or bladder: Negative. Genitalia: Postsurgical changes from hysterectomy GI: Several bowel anastomoses are identified. One adjacent to the distal ileum and ascending colon one in the sigmoid colon. There is a large amount of fecal material seen in the right-sided the colo n to the mid descending colon. There appears to be a ventral hernia containing sigmoid colon and sma ll bowel. The sigmoid colon distal to anastomosis appears decompressed. The small bowel does not ap pear distended although there is small bowel feces in the distal ileum suggesting stasis. There is a small hiatal hernia Vessels/spaces/nodes: Negative. Bones/soft tissues: There is a moderate compression fracture of L1 that appears stable and a severe compression fracture of L5 that appears stable and moderate compression fracture of T11 that appears stable Additional findings: None pertinent. IMPRESSION: Study limited due to extensive motion artifact. Several bowel anastomoses are identified. There is a large amount of fecal material seen in the righ t-sided the colon to the level of the mid descending colon. There appears to be a ventral hernia con taining sigmoid colon and small bowel although the bowel does not appear to be compressed. The sigmo id colon distal to the anastomosis appears decompressed. The small bowel does not appear distended. There are small bowel feces in the distal ileum suggesting stasis Additional chronic findings as described Report Dictated By: Lizzeth Henson MD at 07/23/2018 11:44 AM Report E-Signed By: Lizzeth Henson MD at 07/23/2018 12:03 PM SUNDARN:AMICIVN
== END 2018-07-23 12:35 | disposition home or self-care (01) ==
LOC: ER 10:25
DX: R14.0 Abdominal distension (gaseous) (principal)
CPT/HCPCS: 74177; 81001; 83605; 83690; 85025; 87088; 99284; A4353; Q9967; 82040; 82247; 82310; 82374; 82435; 82565; 82947; 84075; 84132; 84155; 84295; 84450; 84460; 84520

== ENCOUNTER → 2018-09-02 | Outpatient (CLI) | payer MEDICARE, MEDICAID ==
[2017-05-14 11:57] VITALS: BMI 19.5
--- NOTE | 2018-09-02 16:26 | RADIOLOGY IMAGING REPORT ---
FACILITY: [facility] [place] PATIENT NAME: Gretta Mondragon : 1955 MR: [id number] V: [id number] EXAM DATE: ORDERING PHYSICIAN: DENA CATHERINE TECHNOLOGIST: Location: [facility] Patient: Gretta Mondragon : 1955 Visit/Account:[id number] Date of Sevice: 09/02/2018 Study: KUB SINGLE VIEW ABDOMEN Indication: Constipation Comparison study: May 07, 2017 Findings: Single supine view of the abdomen demonstrates the presence of gas and stool throughout the colon. There is a large amount stool within the left colon. There is no evidence of small bowel obstruction. There is no evidence of pneumoperitoneum. The visualized bony structures are unremarkable. IMPRESSION: Gas and stool throughout the colon. There is a large amount of stool present within the l eft colon. Report Dictated By: Ruy Lopez at 09/02/2018 4:20 PM Report E-Signed By: Ruy Lopez at 09/02/2018 4:21 PM WSN:[id number]
== END ==
LOC: RAD 15:36
PROVIDERS: ATTEND Nurse Practitioner Family
DX: K59.00 Constipation, unspecified (principal)
CPT/HCPCS: 74018

== ENCOUNTER 2018-09-04 15:15 | Outpatient (RCR) | payer MEDICARE, MEDICAID ==
[2017-05-14 11:57] VITALS: BMI 19.5
--- NOTE | 2018-08-14 17:01 | PT INITIAL EVALUATION ---
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 She's an [facility] resident who has cerebellar ataxia, spasticity, cognitive impairment. Her aide, Nury, relates Lety isn't walking as much as she used to and had a fall last month. REHAB PROBLEM LIST: Impaired Cognition Decreased ROM Impaired Bed Mobility Impaired Transfers Decreased Balance Decreased Mobility Decreased Gait PREVIOUS MEDICAL HISTORY: Spinal fracture, hypothyroid, [employer] (hearing aides), abdominal drainage. OCCUPATION: [facility] resident OBJECTIVE: Posture: Flexed hips, knees 30 degrees, ER LE's ~40 degrees. ROM: LE PROM, in degrees, hips abd. R 30, L 20, IR B 30, ER R 25, L 30, flexion R 115, L 110. Knees PROM flexion WNL B, extension R -15, L -10 degrees. Ankles DF 10 degrees B. Special Tests: Positive persistent clonus B ankles. Modified Clare Scale: Adductors 3/4, hamstrings 2/4, calves 2/4, trunk rotation 3/4. Mobility: Supine to sit max. assist x1, fearful. Sit to stand with max assist of 1, retropulsive and doesn't flex/extend her knees well, fearful. Gait: 4WW, flat-footed gait, feet barely passing each other and don't clear the floor, frequent stopping and staring, needs strong encouragement to ambulate. Tinetti Gait and Balance 4, an 86% impairment. Lety is able to side step small steps L and R holding her walker but doesn't turn well. Balance: Able to stand holding her walker 3 minutes, heels 12" apart. Minimal pelvic WS in gait, able to lift each foot 1" holding the parallel bars. ASSESSMENT: Gretta Mondragon presents with high fall risk, altered gait and balance, reduced LE ROM, tone, impaired cognition affecting her participation. She did fair with LE stretching, appeared fatigued with gait today. Short Term Goals/Patient's Goals Monthly: Improve Tinetti Gait and Balance to reduce fall risk, improve Lety's participation in transfers to reduce aide's effort, maintain LE ROM for safer gait. PLAN: Patient to be seen for Range of Motion, Stretching, Neuromuscular Re-ed, Gait Trg/Balance Trg, Home Exercise Program 1x/Week for 2019 Thank you for this referral. If you have any questions, comments, or concerns about this report or plan, please contact me at . [facility]
[2018-10-09] MEDS ORDERED: PSYL822P15 PO (15:20)
--- NOTE | 2018-11-06 14:57 | PT PLAN OF CARE ---
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 Patient Compliance: Fair Prognosis: Good Reasons for discontinuing therapy: S: Lety hasn't attended PT due to colorectal blockages. I discussed her attendance with [facility], and they aren't sure when she can return. O: Lety continued to lean in sitting and standing. She was able to reduce lean with reaching activities but was anxious about falling. A/P: Gretta Mondragon has other health issues right now. I'll DC PT due to this. If she can attend in the future, we'd be happy to see her. Thank you. JOSE ALBERTO
--- NOTE | 2018-11-08 16:50 | PT PLAN OF CARE ---
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 Patient Compliance: Good Prognosis: Good Reasons for discontinuing therapy: S: Leyt is receiving home health so I need to DC outpatient PT. She was fearful of falling. O: Lety did fair with seated balance training for midline orientation but was too fearful of fall ing with gait training. A/P: Lety needs home health. I'll DC outpatient PT. Thank you. JOSE ALBERTO
== END 2018-11-12 ==
LOC: PT 15:15
PROVIDERS: ATTEND Nurse Practitioner Family
DX: G11.1 Early-onset cerebellar ataxia (principal); R25.9 Unspecified abnormal involuntary movements; F79 Unspecified intellectual disabilities
CPT/HCPCS: 97162

== ENCOUNTER 2018-09-24 15:05 | Emergency (ER) | payer MEDICARE, MEDICAID ==
[2017-05-14 11:57] VITALS: Wt 53.5 kg
--- NOTE | 2018-09-24 15:26 | ER Report ---
History and Physical Time Seen By MD: 15:17 Hx. of Stated Complaint: Pt. lives at the [facility]. Caregiver providing history. Pt. has been constipated, last bowel movement on 09/19. She was giving Milk of Magnesium yesterday, and started vomiting. Vomited only once. Pt. complaining abdominal pain and back pain. Only water today, no food. HPI/ROS CHIEF COMPLAINT: Abdominal pain HISTORY OF PRESENT ILLNESS: 63 yo female presents to the ED, with her caregiver from [place], with c/o abdominal pain. Caregiver reports that the patient has not had a bowel movement since September 19 and reports that the patient has a history of bowel obstructions in 2015 and 2017. Caregiver states that she was given milk of magnesia but that the patient vomited it back up. Caregiver also reports that the patient has not eaten any food today and has only drank water. records custodian reports that the patient's abdomen protrudes "more than normal". Patient points to RUQ of abdomen and right flank when asked where she has pain. Caregiver denies that patient has had any fevers or recent illness and denies urinary problems. Patient denies chest pain, SOB, or any other pain or discomfort. REVIEW OF SYSTEMS: Constitutional: No fever, no chills. Eyes: No discharge. ENT: No sore throat. Cardiovascular: No chest pain, no palpitations. Respiratory: No cough, no shortness of breath. Gastrointestinal: As above. Genitourinary: No hematuria. Musculoskeletal: As above. Skin: No rashes. Neurological: No headache. Allergies: Coded Allergies: imipenem (Verified Allergy, Intermediate, RASH, 09/24/18) 08/10/15cah: Pt developed a rash on Imipenem, levofloxacin, and vancomycin. Stopped Imipenem and started cefepime midazolam (Verified Allergy, Intermediate, TACHYCARDIA. LOW BP, 09/24/18) clozapine (Verified Allergy, Mild, UNKNOWN REACTION FROM CHART REVIEW, 09/24/18) Home Meds Active Scripts Pantoprazole Sodium (PANTOPRAZOLE SODIUM) 40 Mg Tablet., 40 MG PO QDAY, #30 Prov:KAVITHA SCHAEFFER MD 05/28/17 Reported Medications Folic Acid (FOLIC ACID) 1 Mg Tablet, 1 MG PO QDAY, TAB 11/14/17 Lorazepam (LORAZEPAM) 1 Mg Tab, 1 MG PO PRN, TAB 11/14/17 Naproxen Sodium (ALEVE) 220 Mg Capsule, 220 MG PO TID PRN for prn, CAPSULE 11/14/17 Magnesium Hydroxide (MILK OF MAGNESIA) 400 Mg/5 Ml Oral.susp, 400 MG PO PRN, BOTTLE 11/14/17 Levothyroxine Sodium (LEVOTHYROXINE SODIUM) 88 Mcg Tablet, 100 MCG PO QDAY 11/14/17 Calcium Carbonate/Mag Hydrox (ANTACID CHEWABLE TABLET) 1 Each Tab.chew, 1 EACH PO PRN, TAB.CHEW 11/13/17 Docusate Sodium (COLACE) 100 Mg Capsule, 100 MG PO BID, CAPSULE 11/13/17 Denosumab (PROLIA) 60 Mg/1 Ml Injs, 60 MG SUBQ [id number] 11/13/17 Polyethylene Glycol 3350 (MIRALAX) 17 Gm Powd.pack, 17 GM PO QDAY, PKT 09/24/17 Acetaminophen (MAPAP) 325 Mg/10.15 Ml Solution, 325 MG PO BID 09/24/17 Sodium Chloride (SALINE NASAL SPRAY) 30 Ml [place], 2 SPRAYS NS TID, SPRAY 05/14/17 Cholecalciferol (Vitamin D3) (VITAMIN D3) 1,000 Unit Tablet, 5000 UNIT PO QDAY, TAB 05/14/17 Lactose-Free Food (ENSURE PLUS) 237 Ml Liquid, 237 ML PO QDAY 05/08/17 Duloxetine HCl (Duloxetine HCl) 60 Mg Capsule.dr, 1 CAP PO QDAY 05/07/17 Fludrocortisone Acetate (Florinef) 0.1 Mg Tab, 0.1 MG PO QDAY M-F, 0 Refills 08/05/10 Discontinued Reported Medications Guaifenesin (ROBAFEN) 100 Mg/5 Ml Liquid, 100 MG PO PRN 11/14/17 Multivitamin With Minerals (MULTIPLE VITAMIN) 1 Each Tablet, 1 EACH PO DAILY, TAB 05/14/17 Discontinued Scripts Ferrous Sulfate (FERROUS SULFATE) 325 Mg Tablet, 325 MG PO BIDLS, #60 Prov:KAVITHA SCHAEFFER MD 05/28/17 Past Medical/Surgical History The patient has a past medical and surgical history of poor balance and essential tremors, hypotension, syncope, developmentally delayed, constipation, small bowel obstruction with surgery, colostomy in the past, compression fracture, arthritis, osteoporosis, wears glasses, hard of hearing, hypothyroidism, depression, colectomy, cecal volvulus, hysterectomy, left knee surgery. Reviewed Nurses Notes: Yes Hx Smoking: No Smoking Status: Never Smoker Exposure to Second Hand Smoke?: No Hx Substance Use Disorder: No Hx Alcohol Use: No Constitutional Vital Sign - Last 24 Hours 09/24/18 09/24/18 09/24/18 09/24/18 15:08 15:38 15:40 15:45 Temp 98.3 Pulse 87 85 88 Resp 16 B/P (MAP) 132/86 124/72 (89) Pulse Ox 94 96 96 09/24/18 09/24/18 09/24/18 09/24/18 16:00 16:05 16:10 16:15 Pulse 81 82 87 B/P (MAP) 136/83 (100) Pulse Ox 99 95 97 83 09/24/18 09/24/18 09/24/18 09/24/18 16:20 16:30 16:40 16:45 Pulse 82 84 86 B/P (MAP) 138/116 (123) Pulse Ox 96 100 85 09/24/18 09/24/18 09/24/18 09/24/18 16:50 16:55 17:00 17:20 Pulse 86 84 84 172 B/P (MAP) 149/98 (115) Pulse Ox 90 91 85 85 09/24/18 09/24/18 09/24/18 09/24/18 17:30 17:40 17:45 17:50 Pulse 90 85 88 B/P (MAP) 92/75 (81) Pulse Ox 94 100 100 09/24/18 09/24/18 09/24/18 09/24/18 17:55 18:00 18:05 18:10 Pulse 81 83 82 88 B/P (MAP) 135/96 (109) Pulse Ox 100 89 93 91 09/24/18 18:15 Pulse Ox 75 Physical Exam General Appearance: The patient is alert, has no immediate need for airway protection and no signs of toxicity. Eyes: Pupils equal and round no pallor or injection. ENT, Mouth: Mucous membranes are moist. Respiratory: There are no retractions, lungs are clear to auscultation. Cardiovascular: Regular rate and rhythm. No murmurs, clicks or rubs. Gastrointestinal: Abdomen is distended and tender to palpation, the majority of the discomfort in the right upper quadrant, bowel sounds hypoactive in all quadrants. Neurological: Alert and oriented, follows commands. At baseline. Skin: Warm and dry, no rashes. Musculoskeletal: Neck is supple non tender. Pain with palpation to right flank. Extremities are nontender, nonswollen and have full range of motion. [DIFFERENTIAL DIAGNOSIS: After history and physical exam differential diagnosis was considered for constipation, bowel obstruction, inadequate dietary fiber or fluid intake, medications. Medical Decision Making Data Points Result Diagram: 09/24/18 1536 09/24/18 0000 Laboratory Hematology Test 09/24/18 00:00 09/24/18 15:36 09/24/18 15:58 Sodium Level 144 mmol/L (137-145) Potassium Level 4.1 mmol/L (3.5-5.0) Chloride Level 106 mmol/L (98-107) Carbon Dioxide Level 28 mmol/L (22-31) Blood Urea Nitrogen 23 mg/dl (7-18) Creatinine 0.80 mg/dl (0.52-1.04) Glomerular Filtration Rate Calc > 60.0 Random Glucose 97 mg/dl (75-110) Calcium Level 9.1 mg/dl (8.4-10.2) Total Bilirubin 0.4 mg/dl (0.2-1.3) Aspartate Amino Transf (AST/SGOT) 51 U/L (0-35) Alanine Aminotransferase (ALT/SGPT) 26 U/L (0-56) Alkaline Phosphatase 51 U/L (0-126) Total Protein 6.8 g/dl (6.3-8.2) Albumin 4.2 g/dl (3.5-5.0) Lipase 112 U/L (23-300) Red Blood Count 4.51 M/uL (4.17-5.56) Mean Corpuscular Volume 90.9 fL (80.0-96.0) Mean Corpuscular Hemoglobin 29.9 pg (26.0-33.0) Mean Corpuscular Hemoglobin Concent 32.9 g/dL (32.0-36.0) Red Cell Distribution Width 14.1 % (11.5-14.5) Mean Platelet Volume 11.6 fL (7.2-11.1) Neutrophils (%) (Auto) 52.7 % (39.4-72.5) Lymphocytes (%) (Auto) 31.7 % (17.6-49.6) Monocytes (%) (Auto) 9.5 % (4.1-12.4) Eosinophils (%) (Auto) 4.9 % (0.4-6.7) Basophils (%) (Auto) 1.2 % (0.3-1.4) Nucleated RBC Relative Count (auto) 0.1 /100WBC Neutrophils # (Auto) 2.3 K/uL (2.0-7.4) Lymphocytes # (Auto) 1.4 K/uL (1.3-3.6) Monocytes # (Auto) 0.4 K/uL (0.3-1.0) Eosinophils # (Auto) 0.2 K/uL (0.0-0.5) Basophils # (Auto) 0.1 K/uL (0.0-0.1) Nucleated RBC Absolute Count (auto) 0.00 K/uL Peripheral Blood Smear Yes Y/N Urine Color Yellow Urine Clarity Cloudy Urine pH 7.0 pH (4.8-9.5) Urine Specific [place] 1.018 Urine Protein Negative mg/dL (NEGATIVE) Urine Glucose (UA) Negative mg/dL (NEGATIVE) Urine Ketones Negative mg/dL (NEGATIVE) Urine Blood Negative (NEGATIVE) Urine Nitrite Negative (NEGATIVE) Urine Bilirubin Negative (NEGATIVE) Urine Urobilinogen Negative mg/dL (0.2-1.9) Urine Leukocyte Esterase Negative (NEGATIVE) Urine RBC 1 /HPF (0-2/HPF) Urine WBC None /HPF (0-5/HPF) Urine Squamous Epithelial Cells Few /LPF (</=FEW) Urine Bacteria Negative /HPF (NONE-FEW) Urine Mucus None /HPF (NONE-FEW) Chemistry Test 09/24/18 00:00 09/24/18 15:36 09/24/18 15:58 Glomerular Filtration Rate Calc > 60.0 Calcium Level 9.1 mg/dl (8.4-10.2) Total Bilirubin 0.4 mg/dl (0.2-1.3) Aspartate Amino Transf (AST/SGOT) 51 U/L (0-35) Alanine Aminotransferase (ALT/SGPT) 26 U/L (0-56) Alkaline Phosphatase 51 U/L (0-126) Total Protein 6.8 g/dl (6.3-8.2) Albumin 4.2 g/dl (3.5-5.0) Lipase 112 U/L (23-300) White Blood Count 4.3 k/uL (4.5-11.0) Red Blood Count 4.51 M/uL (4.17-5.56) Hemoglobin 13.5 g/dL (12.0-16.0) Hematocrit 41.0 % (34.0-47.0) Mean Corpuscular Volume 90.9 fL (80.0-96.0) Mean Corpuscular Hemoglobin 29.9 pg (26.0-33.0) Mean Corpuscular Hemoglobin Concent 32.9 g/dL (32.0-36.0) Red Cell Distribution Width 14.1 % (11.5-14.5) Platelet Count 149 K/uL (150-450) Mean Platelet Volume 11.6 fL (7.2-11.1) Neutrophils (%) (Auto) 52.7 % (39.4-72.5) Lymphocytes (%) (Auto) 31.7 % (17.6-49.6) Monocytes (%) (Auto) 9.5 % (4.1-12.4) Eosinophils (%) (Auto) 4.9 % (0.4-6.7) Basophils (%) (Auto) 1.2 % (0.3-1.4) Nucleated RBC Relative Count (auto) 0.1 /100WBC Neutrophils # (Auto) 2.3 K/uL (2.0-7.4) Lymphocytes # (Auto) 1.4 K/uL (1.3-3.6) Monocytes # (Auto) 0.4 K/uL (0.3-1.0) Eosinophils # (Auto) 0.2 K/uL (0.0-0.5) Basophils # (Auto) 0.1 K/uL (0.0-0.1) Nucleated RBC Absolute Count (auto) 0.00 K/uL Peripheral Blood Smear Yes Y/N Urine Color Yellow Urine Clarity Cloudy Urine pH 7.0 pH (4.8-9.5) Urine Specific [place] 1.018 Urine Protein Negative mg/dL (NEGATIVE) Urine Glucose (UA) Negative mg/dL (NEGATIVE) Urine Ketones Negative mg/dL (NEGATIVE) Urine Blood Negative (NEGATIVE) Urine Nitrite Negative (NEGATIVE) Urine Bilirubin Negative (NEGATIVE) Urine Urobilinogen Negative mg/dL (0.2-1.9) Urine Leukocyte Esterase Negative (NEGATIVE) Urine RBC 1 /HPF (0-2/HPF) Urine WBC None /HPF (0-5/HPF) Urine Squamous Epithelial Cells Few /LPF (</=FEW) Urine Bacteria Negative /HPF (NONE-FEW) Urine Mucus None /HPF (NONE-FEW) Urinalysis Test 09/24/18 15:58 Urine Color Yellow Urine Clarity Cloudy Urine pH 7.0 pH (4.8-9.5) Urine Specific [place] 1.018 Urine Protein Negative mg/dL (NEGATIVE) Urine Glucose (UA) Negative mg/dL (NEGATIVE) Urine Ketones Negative mg/dL (NEGATIVE) Urine Blood Negative (NEGATIVE) Urine Nitrite Negative (NEGATIVE) Urine Bilirubin Negative (NEGATIVE) Urine Urobilinogen Negative mg/dL (0.2-1.9) Urine Leukocyte Esterase Negative (NEGATIVE) Urine RBC 1 /HPF (0-2/HPF) Urine WBC None /HPF (0-5/HPF) Urine Squamous Epithelial Cells Few /LPF (</=FEW) Urine Bacteria Negative /HPF (NONE-FEW) Urine Mucus None /HPF (NONE-FEW) EKG/Imaging Imaging Location: [facility] [place] Patient: Gretta Mondragon : 1955 Visit/Account:[id number] Date of Sevice: 09/24/2018 CHEST SINGLE AP History: RUQ pain FINDINGS: Comparison studies: 09/24/2017 chest x-ray Tubes and Lines: None. Lungs and pleura: Mildly coarsened pulmonary interstitium is stable and uncha nged from the previous study. There is no developing focal consolidation or pleural effusions. Mediastinum: normal. Cardiac silhouette: normal . Osseous structures: Unremarkable for age . IMPRESSION: No acute cardiopulmonary pathology identified. Report Dictated By: Kleber Rogel MD at 09/24/2018 4:43 PM Report E-Signed By: Kleber Rogel MD at 09/24/2018 4:57 PM WSN:[email or web address] Location: [facility] [place] Patient: Gretta Mondragon : 1955 Visit/Account:[id number] Date of Sevice: 09/24/2018 CT ABDOMEN PELVIS W/ CON HISTORY: Abdominal pain TECHNIQUE: Following administration of IV contrast contiguous axial images acquired through the abdomen/pelvis. Coronal and sagittal reformatting also performed. One of the following dose optimization techniques was utilized in the performance of this exam: Automated exposure control; adjustment of the mA and/or kV according to the patient's size; or use of an iterative reconstruction technique. Specific details can be referenced in the facility's radiology CT exam operational policy. CONTRAST: 75 mL Isovue-370 COMPARISON: CT abdomen pelvis 07/23/2018 FINDINGS: Visualized lung bases: Negative. Hepatobiliary: Several small hepatic cysts again noted unchanged gallbladder unremarkable. Spleen: Negative. Adrenals: Negative. Pancreas: Negative. Kidneys ureters or bladder: Negative. Genitalia: Negative. GI: Again seen is evidence of previous colon surgery with suture material seen in the ascending colon. There is an infraumbilical ventral midline abdominal hernia with sigmoid colon impressing into the defect to the level of the dermis. This is unchanged. There is a very large amount of colonic fecal material proximal to the herniated sigmoid colon which involves the descending transverse and ascending colon. This is also seen in the previous study although slightly worse. Small bowel is decompressed and unremarkable. There is a small hiatal hernia. Vessels/spaces/nodes: Negative. Bones/soft tissues: There is advanced collapse of the midportion of the L5 vertebral body which is unchanged and mild compression of the anterior L1 and T11 superior endplates as well as very mild compression of T9 all unchanged from the previous exam. Additional findings: None pertinent. IMPRESSION: Ventral midline abdominal surgical hernia with air-filled sigmoid colon invaginating into the hernia defect unchanged. Extensive colonic fecal retention proximal to the sigmoid colon also seen on prior study but possibly slightly worse. This probably represents the etiology of patient's pain Multiple thoracal lumbar spine compression fractures unchanged. Small hiatal hernia. Additional benign findings per above Report Dictated By: Kleber Rogel MD at 09/24/2018 4:45 PM Report E-Signed By: Kleber Rogel MD at 09/24/2018 4:57 PM WSN:[email or web address] ED Course/Re-evaluation Clinical Indication for ER IV: Hydration, IV Access ED Course The patient was admitted to room. A history and physical were obtained. Differential diagnoses were considered. An IV was started. A CBC, CMP were obtained. Lab studies unremarkable. A UA was collected. A 1 L normal saline bolus was given. CT of the abdomen pelvis negative for bowel obstruction, more consistent with constipation. Negative chest x-ray. Results were reviewed with the patient and the caregiver, suggested an enema, patient was given a soapsuds enema with significant relief of her symptoms and significant production of stool. Encouraged to follow-up with primary care provider within the next 2-5 days, return to the ER for any other concerns or worsening symptoms. I did send the patient home with mag citrate she G have recurrent episodes of constipation she was also sent home with Zofran for nausea. There are no other questions or concerns at this time and discharged home. I agree with RIOS Lock students assessment. RYNE Decision to Disposition Date: Sep 24, 2018 Decision to Disposition Time: 19:05 Depart Departure Latest Vital Signs Vital Signs Date Time Temp Pulse Resp B/P (MAP) Pulse Ox O2 Delivery O2 Flow Rate FiO2 09/24/18 18:15 75 09/24/18 18:10 88 09/24/18 18:00 135/96 (109) 09/24/18 15:08 98.3 16 Impression: Primary Impression: Constipation Condition: Improved Disposition: HOME OR SELF-CARE Referrals: SAQIB LOTT (PCP) 5 Days Patient Instructions: Constipation (ED) Additional Instructions: There was no sign of bowel obstruction on the CT today. You can use the ODT Zofran every 4-6 hours as needed for nausea and vomiting. When you get home please drink half of the mag citrate, fleets approximately 30 minutes, if no bowel movement or nausea or vomiting, drink the other half. In addition to the medics saturate you can also try prune juice. Be sure to drink plenty of water. Get plenty of rest. Please follow-up with your primary care provider within the next 2-5 days for reevaluation. Return to the emergency department for any other concerns or worsening symptoms. Problem Qualifiers Primary Impression: Constipation Constipation type: slow transit constipation Qualified Codes: K59.01 - Slow transit constipation VITALIY PEREZ-JUAN J Sep 24, 2018 15:26
[2018-09-24] MEDS ORDERED: NS(*) 0.9% 1000 ML BAG 1,000 ML IV ONE (15:36)
[2018-09-24] MEDS ORDERED: IOPAMIDOL 76% 100 ML INFUS BTL 100 ML ONE (16:02)
[2018-09-24 16:23] LABS: PLATELET COUNT, AUTOMATED 149 K/uL (150-450)
--- NOTE | 2018-09-24 17:02 | RADIOLOGY IMAGING REPORT ---
FACILITY: [facility] PATIENT NAME: Gretta Mondragon : 1955 MR: [id number] V: [id number] EXAM DATE: [id number] ORDERING PHYSICIAN: VITALIY PEREZ TECHNOLOGIST: Location: [facility] [place] Patient: Gretta Mondragon : 1955 Visit/Account:[id number] Date of Sevice: 09/24/2018 CT ABDOMEN PELVIS W/ CON HISTORY: Abdominal pain TECHNIQUE: Following administration of IV contrast contiguous axial images acquired through the abdom en/pelvis. Coronal and sagittal reformatting also performed. One of the following dose optimization techniques was utilized in the performance of this exam: Automated exposure control; adjustment of t he mA and/or kV according to the patient's size; or use of an iterative reconstruction technique. S pecific details can be referenced in the facility's radiology CT exam operational policy. CONTRAST: 75 mL Isovue-370 COMPARISON: CT abdomen pelvis 07/23/2018 FINDINGS: Visualized lung bases: Negative. Hepatobiliary: Several small hepatic cysts again noted unchanged gallbladder unremarkable. Spleen: Negative. Adrenals: Negative. Pancreas: Negative. Kidneys ureters or bladder: Negative. Genitalia: Negative. GI: Again seen is evidence of previous colon surgery with suture material seen in the ascending colo n. There is an infraumbilical ventral midline abdominal hernia with sigmoid colon impressing into th e defect to the level of the dermis. This is unchanged. There is a very large amount of colonic fec al material proximal to the herniated sigmoid colon which involves the descending transverse and asce nding colon. This is also seen in the previous study although slightly worse. Small bowel is decomp ressed and unremarkable. There is a small hiatal hernia. Vessels/spaces/nodes: Negative. Bones/soft tissues: There is advanced collapse of the midportion of the L5 vertebral body which is u nchanged and mild compression of the anterior L1 and T11 superior endplates as well as very mild comp ression of T9 all unchanged from the previous exam. Additional findings: None pertinent. IMPRESSION: Ventral midline abdominal surgical hernia with air-filled sigmoid colon invaginating into the hernia defect unchanged. Extensive colonic fecal retention proximal to the sigmoid colon also seen on prior study but possibly slightly worse. This probably represents the etiology of patient's pain Multiple thoracal lumbar spine compression fractures unchanged. Small hiatal hernia. Additional benign findings per above Report Dictated By: Kleber Rogel MD at 09/24/2018 4:45 PM Report E-Signed By: Kleber Rogel MD at 09/24/2018 4:57 PM WSN:[email or web address]
--- NOTE | 2018-09-24 17:03 | RADIOLOGY IMAGING REPORT ---
FACILITY: [facility] - [place] PATIENT NAME: Gretta Mondragon : 1955 MR: [id number] V: [id number] EXAM DATE: ORDERING PHYSICIAN: VITALIY PEREZ TECHNOLOGIST: Location: [facility] [place] Patient: Gretta Mondragon : 1955 Visit/Account:[id number] Date of Sevice: 09/24/2018 CHEST SINGLE AP History: RUQ pain FINDINGS: Comparison studies: 09/24/2017 chest x-ray Tubes and Lines: None. Lungs and pleura: Mildly coarsened pulmonary interstitium is stable and unchanged from the previous study. There is no developing focal consolidation or pleural effusions. Mediastinum: normal. Cardiac silhouette: normal . Osseous structures: Unremarkable for age . IMPRESSION: No acute cardiopulmonary pathology identified. Report Dictated By: Kleber Rogel MD at 09/24/2018 4:43 PM Report E-Signed By: Kleber Rogel MD at 09/24/2018 4:57 PM WSN:LACI
[2018-09-24 18:00] VITALS: BP 135/96
[2018-09-24] MEDS ORDERED: ONDANSETRON 4 MG ODT TABDP SL ONE (19:05)
[2018-09-24] MEDS ORDERED: ONDANSETRON 4 MG ODT TH SL ONE (19:05)
[2018-09-24] MEDS ORDERED: MAGNESIUM CITRATE 300 ML BTL PO ONE (19:05)
== END 2018-09-24 19:26 | disposition home or self-care (01) ==
LOC: ER 15:12
DX: K59.01 Slow transit constipation (principal)
CPT/HCPCS: 71045; 74177; 81001; 83690; 85025; 96360; 99284; A9270; J7030; Q0162; Q9967; 82040; 82247; 82310; 82374; 82435; 82565; 82947; 84075; 84132; 84155; 84295; 84450; 84460; 84520; S0119

== ENCOUNTER → 2018-11-01 | Outpatient (CLI) | payer MEDICARE, MEDICAID ==
[2017-05-14 11:57] VITALS: BMI 19.5
[~2018-11-01] MED LIST changes: +DENOSUMAB 60 MG/1 ML SYR SUBQ ONE; +PSYL822P15 PO
[2018-11-01 13:59] VITALS: BP 134/96
== END ==
LOC: SPU 07:39
PROVIDERS: ATTEND Nurse Practitioner Family
DX: M81.0 Age-related osteoporosis without current pathological fracture (principal)
CPT/HCPCS: 96372; J0897

== ENCOUNTER → 2018-12-03 | Outpatient (CLI) | payer MEDICARE, MEDICAID ==
[2017-05-14 11:57] VITALS: BMI 19.5
[~2018-12-03] MED LIST changes: -DENOSUMAB 60 MG/1 ML SYR SUBQ ONE
--- NOTE | 2018-12-04 14:37 | RADIOLOGY IMAGING REPORT ---
FACILITY: [facility] - [place] PATIENT NAME: BROCK SELF : [id number] MR: [id number] V: [id number] EXAM DATE: [id number] ORDERING PHYSICIAN: SAQIB LOTT TECHNOLOGIST: Ayse Ireland PROCEDURE: BILATERAL DIGITAL SCREENING MAMMOGRAM WITH CAD ASSISTED INTERPRETATION REASON FOR STUDY: Screening. FAMILY HISTORY OF BREAST CANCER: Unknown. BREAST PROCEDURES/TREATMENTS: Unknown. COMPARISON: Prior mammograms 11/30/17, 11/28/16, 11/25/15, 11/23/14, 11/18/13, 11/07/12. VIEWS OBTAINED: 2D full field CC, MLO & XCC. The images were limited due to patient's mental and physical disabilities which have decreased over time py technologist notation. BREAST DENSITY: The breasts are heterogeneously dense which can obscure small masses. MAMMOGRAM FINDINGS: When allowing the difference in mammographic technique the parenchymal pattern has remained stable. IMPRESSION: BIRADS 2: Benign finding. DIAGNOSTIC CATEGORY 2--BENIGN FINDING. RECOMMENDATIONS: ROUTINE MAMMOGRAM AND CLINICAL EVALUATION. Dictated by: Lizzeth Henson M.D. on 12/03/2018 at 16:50 Transcribed by: MIKE on 12/04/2018 at 8:43 Approved by: Lizzeth Henson M.D. on 12/04/2018 at 14:36 [facility]
== END ==
LOC: MAMO 00:52
PROVIDERS: ATTEND Nurse Practitioner Family
DX: Z12.31 Encounter for screening mammogram for malignant neoplasm of breast (principal)
CPT/HCPCS: 77063; 77067